=== PATIENT | male | born 1945 | race Caucasian/White ===

== ENCOUNTER 2019-01-17 01:37 | Outpatient (CLI) | payer OTHER, MEDICARE, SELFPAY ==
--- NOTE | 2019-01-17 08:00 | DI.US_ITS ---
SYMPTOM/DIAGNOSIS: ABDOMINAL PAIN R10.9 ABDOMINAL ULTRASOUND: 01/17 Visualized liver parenchyma is normal in appearance. Note is made of cholelithiasis with the gallbladder lumen apparently completely occupied by stones. No significant gallbladder wall thickening noted. No biliary dilatation seen. Pancreas appears intact as visualized. Kidneys are unremarkable in appearance. Abdominal aorta and IVC are of normal diameter. Kidneys are normal in appearance except for incidental 32 mm in diameter simple cyst of the mid pole of the right kidney. Spleen appears normal. CONCLUSION: Cholelithiasis, no evidence of gallbladder wall thickening, pericholecystic fluid collection or biliary dilatation.
== END 2019-01-17 01:57 ==
PROVIDERS: PCP Internal Medicine; Visit Provider Family Medicine
DX: K80.20 Calculus of gallbladder without cholecystitis without obstruction (principal)
CPT/HCPCS: 76700

== ENCOUNTER 2019-01-18 03:57 | Outpatient (CLI) | payer OTHER, MEDICARE, SELFPAY ==
--- NOTE | 2019-01-18 08:15 | DI.NM_ITS ---
SYMPTOMS/DIAGNOSIS: ABDOMINAL PAIN X 2 WEEKS, R10.9 HEPATOBILIARY SCAN: 5.0 mCi of technetium 99m mebrofenin were administered IV. There is normal hepatic uptake. The biliary tree and small bowel are promptly visualized. The gallbladder is not visualized out to 2.5 hours. On ultrasound, the gallbladder was noted to be full of stones. IMPRESSION: Nonvisualization of the gallbladder is likely secondary to the presence of stones filling the gallbladder. Acute cholecystitis cannot be entirely excluded on this exam, although there was no suspicion on previous ultrasound.
== END 2019-01-18 04:17 ==
PROVIDERS: PCP Internal Medicine; Visit Provider Family Medicine
DX: R10.9 Unspecified abdominal pain (principal)
CPT/HCPCS: 78227

== ENCOUNTER → 2019-01-30 13:37 | Outpatient (BNVA) | payer OTHER, SELFPAY | PROVIDERS: PCP Internal Medicine; Referring Provider Internal Medicine; Visit Provider Surgery | DX: R69 Illness, unspecified (principal) ==

== ENCOUNTER 2019-01-30 14:45 | Outpatient (CLI) | payer OTHER, MEDICARE, SELFPAY ==
[2019-01-30 15:56] LABS: Abs Immature Grans 0.03 k/cumm (0.0-0.09); Absolute Basophil Count 0.08 k/cumm (0.0-0.2); Absolute Eosinophil Count 0.29 k/cumm (0.0-0.7); Absolute Lymphocyte Count 2.47 k/cumm (1.2-3.4); Absolute Monocyte Count 0.62 k/cumm (0.11-0.7); Absolute Neutrophil Count 3.41 k/cumm (1.2-6.7); Basophils % 1.2; Eosinophils % 4.2; HCT 45.9 % (40.0-50.0); HGB 15.2 g/dL (13.5-17.5); Immature Grans % 0.4; Lymphocytes % 35.8; Mean Corp. HGB Concentration 33.1 g/dL (32.0-36.0); Mean Corpuscular Hemoglobin 29.4 pg (27.0-33.0); Mean Corpuscular Volume 88.8 fL (80-95); Mean Platelet Volume 10.3 fL (8.0-11.0); Neutrophils % 49.4; Platelet Count 277 x1000/uL (130-400); RBC 5.17 m/cumm (4.50-6.00); RBC Distribution Width 12.7 % (11.8-14.1)
[2019-01-30 16:54] LABS: ALT 186 U/L (16-63); AST 78 U/L (15-37); Albumin 3.9 g/dL (3.4-5.0); Alkaline Phosphatase 344 U/L (46-116); Anion Gap 10.9 mmol/L (3-11); BUN 13 mg/dL (7-18); Bilirubin, Total 0.8 mg/dL (0.2-1.0); CO2 27.1 mmol/L (21.0-32.0); CREATININE 1.04 mg/dL (0.70-1.30); Calcium 8.8 mg/dL (8.5-10.1); Chloride 103 mmol/L (98-107); Glucose 86 mg/dL (70-100); Potassium 4.6 mmol/L (3.5-5.1); Sodium 141 mmol/L (136-145); Total Protein 7.5 g/dL (6.4-8.2)
== END 2019-01-30 15:05 ==
PROVIDERS: PCP Internal Medicine; Visit Provider Surgery
DX: K80.20 Calculus of gallbladder without cholecystitis without obstruction (principal)
CPT/HCPCS: 36415; 80053; 99204; 99214; 85025

== ENCOUNTER 2019-02-07 08:12 | Day surgery (SDC) | payer OTHER, SELFPAY ==
[2019-02-07] VITALS (9 sets, daily range): BP systolic 115–149; BP diastolic 59–85; PULSE 62–76; RESP 11–17; TEMP 36–36.5; O2SAT 93–98
[2019-02-07] MEDS: Lactated Ringers 1,000 ML 80 ML IV (09:05)
[2019-02-07] MEDS: ceFAZolin 2 GM/50 ML BAG IVPB (09:15)
--- NOTE | 2019-02-07 09:24 | PDOC.DSDIS_ITS ---
Discharge Plan Disposition Patient Disposition: HOME Condition: Good Discharge Details Reason For Visit: Laparoscopic cholecystectomy Attending Provider: Mariza Mcbride Primary Care Provider: Quan Altamirano Home Meds and New Rx's Prescriptions: No Action No Known Home Meds RF: 0 Discharge Instructions Additional Instructions: A dye study was performed during the procedure and showed that stones had left the gallbladder and passed into the common bile duct. These will need to be removed with a procedure called an ERCP. My office will contact you to make the referral to [facility]. The top bandage can be removed tomorrow. The steri strips will usually stick for about a week. When the edges start to curl up, they can be removed. It is okay to shower tomorrow, the water can run over the steri strips Do not swim or soak in a tub for two weeks Call for any concerns including fever, increased pain, vomiting, incision redness or drainage. Do not lift more than 15 pounds for two weeks. Walking and stairs are fine. Do not drive if on narcotic pain meds or if limited by pain. May use Tylenol alternating with ibuprofen for pain control. Ice is also an option. The maximum dose for Tylenol is 4000 mg/day. May use ibuprofen 800 mg every 8 hours as needed. If concerned about constipation, you may use a stool softener or milk of magnesia. Referrals: Mariza Mcbride MD [ [facility] STAFF PHYSICIAN] - (Return for a postop visit in 10-14 days) Activity:: Do not lift more than 15 pounds for two weeks Remove Dressings/Wound Care:: 24 hours Shower/Bathe:: 24 hours Diet:: Low fat for two weeks Discharge Orders Discharge Orders: Discharge Order (Routine); Ordered 02/07/19 Ordered By: Mariza Mcbride DS: Diagnosis Discharge Diagnosis (1) Cholelithiasis: Status: Acute (2) History of laparoscopic cholecystectomy:
[2019-02-07] MEDS: Omnipaque 300 MG/ML 50 ML BTL (11:12)
--- NOTE | 2019-02-07 11:21 | DI.RAD_ITS ---
SYMPTOM/DIAGNOSIS: BILIARY COLIC C-ARM FLUOROSCOPY: Fluoroscopy Time: 24.9 SEC Fluoroscopy was provided in the O.R. during laparoscopic cholecystectomy. Hard copy images show injection of contrast in to the biliary tree. The biliary tree is somewhat dilated. There are filling defects seen in the common bile duct as well as multiple filling defects seen in the cystic duct. Some contrast is seen to flow in to the duodenum. Please see procedure note for details.
--- NOTE | 2019-02-07 11:48 | GB_PTH ---
PATIENT: Ramu Hooker LOC: [facility] U#:[id number] AGE/SX: 74/M ROOM: RE02/07/[address]: Mariza Mcbride MD : [id number] BED: DIS: 02/07/2019 SPEC #: [id number] RECD: 02/07/19 12:58 STATUS: ROBERT REAllen #: [id number] NAHID: 02/07/19 11:[address]: Mariza Mcbride DEPT: Surgical Specimen RECD BY: Becca Bah ENTERED: 02/07/19 12:59 SP TYPE: GB OTHR DR: Quan Altamirano Tissues: 1 - GALLBLADDER Procedures: GROSS AND MICRO LEVEL 3 Comments: [id number]
[2019-02-07] MEDS: Bupivacaine 0.5% Pres-Free 30 ML VIAL (12:03)
[2019-02-07] MEDS: fentaNYL 100 MCG/2 ML VIAL IVP ×2 (12:39→12:59)
[2019-02-07] MEDS: Ibuprofen 800 MG TAB PO (14:19)
--- NOTE | 2019-02-07 16:31 | ROE_ITS ---
DATE OF PROCEDURE: February 07, 2019 PREOPERATIVE DIAGNOSIS: Symptomatic cholelithiasis. POSTOPERATIVE DIAGNOSIS: 1. Chronic cholecystitis. 2. Choledocholithiasis. PROCEDURE: Laparoscopic cholecystectomy with cholangiogram. SURGEON: Mariza Mcbride M.D. SUPPLY CHAIN TECHNICIAN: Doug Leon ANESTHESIA: Local and general. INDICATIONS: This is a 73-year-old man with right upper quadrant pain consistent with symptomatic ch olelithiasis. He had an ultrasound that showed a gallbladder full of stones and had a HIDA scan that showed non-filling of the gallbladder. He was noted to have mildly elevated LFT's preoperatively. PROCEDURE: He was placed supine on the operating table and under general anesthetic was prepped and draped sterilely. A 5 mm incision was made to the left of the umbilicus and the abdomen entered unde r direct visualization. A CO2 pneumoperitoneum was begun and he was placed in reverse Trendelenburg. The epigastric and two lateral ports were placed after injected local anesthetic under direct visua lization. The gallbladder was noted to be chronically thickened, consistent with chronic cholecystit is. There were some omental adhesions that were taken down with cautery. The fundus was pulled up o arminda the liver. The dissection in the triangle of Calot was very slow and deliberate. He had a lot o f chronic inflammatory change here which obscured the normal anatomy. I was ultimately able to ident surya the cystic duct, which was noted to be quite dilated and the cystic artery. This was after proba christopher an hour of careful dissection. The common bile duct was also visualized and was noted to be dila karyn. Using the Ramírez Clamp across the infundibulum I performed a cholangiogram, which showed that I was in good position with the identification of the cystic duct. There were stones remaining within the cystic duct. There was visualization of the right and left hepatic ducts. There was flow from t he common duct into the duodenum without any evidence of obstruction. There were at least two gallst ones noted within the distal common duct that were freely floating. The Ramírez Clamp was removed. Du e to the width of the cystic duct it would not allow for clip placement, so that laparoscopic stapler was used with the purple bowel load. This was done due to the thickness of the tissue. The artery could then be isolated and was clipped twice proximally, once distally and divided. The gallbladder was then dissected off the liver bed with hook cautery. The plane between the gallbladder and live r was obliterated essentially, so I did enter the gallbladder with spillage of numerous beyer stones . I was able to catch many of these in the Endo-Catch bag and completed removal of the gallbladder, which was removed from the abdomen. The epigastric incision had to be extended to allow for passage of the gallbladder with numerous stones. The remaining stones were retrieved with the spoon grasper. Inspection of the operative site revealed no bleeding or bile leak. The staple line on the cystic duct was intact. The region was copiously irrigated and suctioned clean with no obvious residual sto viktor. The ports were removed with no evidence of bleeding and the CO2 released. The fascia at the ep igastric incision was closed with a [id number] #0 Vicryl stitch and then the skin at all port si neetu closed with a #4-0 Monocryl subcuticular stitch. He tolerated the procedure well and was stable to recovery. cc: Quan Altamirano M.D.
== END 2019-02-07 15:09 | disposition home or self-care (01) ==
PROVIDERS: PCP Internal Medicine; Visit Provider Surgery
PROC: 0FT44ZZ Resection of Gallbladder, Percutaneous Endoscopic Approach (ICD-10-PCS; CPT 47563; principal; 2019-02-07 10:30)
DX: K80.01 Calculus of gallbladder with acute cholecystitis with obstruction (principal); K82.8 Other specified diseases of gallbladder; G47.33 Obstructive sleep apnea (adult) (pediatric)
CPT/HCPCS: 47563; 74300; 88304; J0690; J1100; J2405; J3010; Q9967

== ENCOUNTER → 2019-02-20 10:33 | Outpatient (BNVA) | payer OTHER, SELFPAY | PROVIDERS: PCP Internal Medicine; Referring Provider Internal Medicine; Visit Provider Surgery | DX: Z48.815 Encounter for surgical aftercare following surgery on the digestive system (principal); Z87.19 Personal history of other diseases of the digestive system; Z90.49 Acquired absence of other specified parts of digestive tract ==

== ENCOUNTER 2022-11-03 14:49 | Outpatient (REF) | payer MEDICARE, OTHER, SELFPAY ==
[2022-11-03 15:18] LABS: ESR 5 mm/hr (0-20)
[2022-11-04 11:34] LABS: Lyme Ab w Rflx to Lyme Confirm Negative (Negative)
== END 2022-11-03 14:50 | disposition home or self-care (01) ==
LOC: LBN 14:49
PROVIDERS: PCP Internal Medicine; Visit Provider Nurse Practitioner Family
DX: M25.50 Pain in unspecified joint (principal)
CPT/HCPCS: 85652; 86618